=== PATIENT | female | born 1990 | race Caucasian/White ===

== ENCOUNTER 2019-02-20 21:11 | Emergency (ER) | payer SELFPAY ==
[~2019-02-20] VITALS: Ht 160 cm; Wt 59.0 kg
[2019-02-20 21:13] VITALS: BP 121/81
--- NOTE | 2019-02-20 21:13 | NUR ---
PT AMBULATED SELF TO BED #8
--- NOTE | 2019-02-20 21:25 | NUR ---
28 Y/O FEMALE PRESENTS TO ED, C/O OF RIGHT LOWER TOOTHACHE. PT STATES PAIN STARTED YESTERDAY, TOOK MOTRIN BUT WAS INEFFECTIVE. PT UNABLE TO TOLERATE PAIN. PT STATES BEING ADMITTED LAST JULY FOR LEFT LOWER TOOTHACHE. PT STATES RECEIVING ABX AND PAIN BEING RELIEVED. MILD SWELLING ON R LOWER TOOTH. PT STATES BEING ABLE TO TOLERATE FOOD AND LIQUID BUT HAS PAIN ON JAW MOVEMENT. PT HAS NO MEDICAL HX. PT VSS. DR GIANG AWARE. WILL CONTINUE TO MONITOR.
[2019-02-20 22:45] VITALS: BP 115/75
--- NOTE | 2019-02-20 22:45 | NUR ---
PT DISCHARGE WITH PAPERWORK. RX NAPROSYN, NORCO, AND AMOXICILLIN. EDUCATED PT REGARDING MEDICATIONS AND SIDE EFFECTS. EDUCATED PT REGARDING DISCHARGE DIAGNOSIS. PT VERBALIZED UNDERSTANDING OF TEACHING. TOLD PT TO FOLLOW UP WITH PCP AND DETIST. TOLD PT WHEN TO RETURN TO ED. PT VSS. ALL QUESTIONS ANSWERED.
== END 2019-02-20 22:45 | disposition home or self-care (01) ==
LOC: MED 21:11
DX: K08.89 Other specified disorders of teeth and supporting structures (principal)
CPT/HCPCS: 99283

== ENCOUNTER 2021-08-16 13:13 | Emergency (ER) | payer SELFPAY ==
[~2021-08-16] VITALS: Ht 162.6 cm; Wt 60.8 kg
[2021-08-16 13:27] VITALS: BP 107/81
--- NOTE | 2021-08-16 13:30 | NUR ---
PT TO WAIT IN LOBBY.
--- NOTE | 2021-08-16 13:41 | NUR ---
30 Y/O FEMALE C/O VAGINAL CRAMPING 01/23 X3DAYS. PT LMP 06/30/21. [id number]. DENIES FEVER/CHILLS. DENIES N/V. PMH: ASTHMA, ANXIETY NKA
[2021-08-16 14:38] LABS: APPEARANCE,URINE CLEAR (CLEAR); BILIRUBIN,URINE NEGATIVE (NEGATIVE); BLOOD, URINE TRACE-I (NEGATIVE); COLOR,URINE ORANGE (YELLOW); LEUKOCYTE ESTERASE ,URINE NEGATIVE (NEGATIVE); NITRITE, URINE POSITIVE (NEGATIVE); PH,URINE 7.5 (5.0-9.0); UGLUCOSE NEGATIVE (NEGATIVE)
[2021-08-16 17:08] VITALS: BP 112/78
--- NOTE | 2021-08-16 17:08 | NUR ---
PT LEFT WITHOUT DISCHARGE PAPERWORK. MADE AWARE.
[2021-08-16] MEDS ORDERED: NAPR-54 PO (17:14)
[2021-08-16 21:27] LABS: WBC,URINE 0-5 /HPF (0-5)
[2021-08-16 21:28] LABS: CALCIUM OXALATE CRYSTALS,UR None Seen /HPF (None Seen); OTHER CRYSTALS,URINE None Seen /HPF (None Seen); TRICHOMONAS,URINE None Seen /HPF (None Seen); TRIPLE PHOSPHATE CRYSTAL,UR None Seen /HPF (None Seen); URIC ACID CRYSTALS,URINE None Seen /HPF (None Seen); YEAST,URINE None Seen /HPF (None Seen)
== END 2021-08-16 17:08 | disposition home or self-care (01) ==
LOC: MED 13:13
DX: R10.2 Pelvic and perineal pain (principal); J45.909 Unspecified asthma, uncomplicated; F41.9 Anxiety disorder, unspecified; F17.210 Nicotine dependence, cigarettes, uncomplicated; Z79.1 Long term (current) use of non-steroidal anti-inflammatories (NSAID)
CPT/HCPCS: 36415; 76856; 81001; 81025; 84702; 99284

== ENCOUNTER 2022-04-19 01:28 | Emergency (ER) | payer OTHER ==
[~2022-04-19] VITALS: Ht 162.6 cm; Wt 64.2 kg
[~2022-04-19 01:28] MED LIST: NAPR-54 PO
[2022-04-19 01:36] VITALS: BP 151/88
--- NOTE | 2022-04-19 01:39 | NUR ---
PT TO LOBBY
--- NOTE | 2022-04-19 02:58 | NUR ---
URINE COLLECTED AND HANDED TO LAB
[2022-04-19 03:09] LABS: BASOPHILS # (AUTO) 0.2 K/uL (0.00-0.22); BASOPHILS % (AUTO) 0.9 % (0.0-2.0); EOSINOPHILS # (AUTO) 0.5 K/uL (0-0.4); EOSINOPHILS % (AUTO) 3.2 % (0.0-4.0); HEMATOCRIT 39.8 % (36-48); HEMOGLOBIN 13.4 g/dL (12.0-16.0); LYMPHOCYTES # (AUTO) 4.6 K/uL (2.5-16.5); LYMPHOCYTES % (AUTO) 28.7 % (20.5-51.1); MEAN CORPUSCULAR HEMOGLOBIN 30 pg (27-31); MEAN CORPUSCULAR HGB CONC 34 g/dL (33-37); MEAN CORPUSCULAR VOLUME 88.8 fL (80-94); MONOCYTES % (AUTO) 6.4 % (1.7-9.3); NEUTROPHILS # (AUTO) 9.7 K/uL (1.8-7.7); NEUTROPHILS % (AUTO) 60.8 % (42.2-75.2); PLATELET COUNT (AUTO) 271 K/uL (140-450); RED BLOOD CELL COUNT(AUTO) 4.48 MIL/uL (4.20-5.40); RED CELL DISTRIBUTION WIDTH 12.8 % (11.6-13.7)
[2022-04-19 03:27] LABS: ALBUMIN 3.6 g/dL (3.4-5.0); ANION GAP 12.6 (8-16); CARBON DIOXIDE 26.3 mmol/L (21-32); CREATININE 0.5 mg/dL (0.6-1.3); POTASSIUM 3.9 mmol/L (3.5-5.1); TOTAL BILIRUBIN 0.1 mg/dL (0.0-1.0)
[2022-04-19 04:05] VITALS: BP 151/88
--- NOTE | 2022-04-19 04:05 | NUR ---
Patient discharged with v/s stable. Written and verbal after care instructions given and explained. Patient verbalized understanding. Ambulatory with steady gait. All questions addressed prior to discharge. Advised to follow up with PMD.
== END 2022-04-19 04:05 | disposition home or self-care (01) ==
LOC: MED 01:28
DX: O26.891 Other specified pregnancy related conditions, first trimester (principal); R10.30 Lower abdominal pain, unspecified; O99.341 Other mental disorders complicating pregnancy, first trimester; F41.9 Anxiety disorder, unspecified; O99.511 Diseases of the respiratory system complicating pregnancy, first trimester; J45.909 Unspecified asthma, uncomplicated; Z3A.01 Less than 8 weeks gestation of pregnancy; Z79.1 Long term (current) use of non-steroidal anti-inflammatories (NSAID); V89.2XXA Person injured in unspecified motor-vehicle accident, traffic, initial encounter; Y93.89 Activity, other specified; Y92.410 Unspecified street and highway as the place of occurrence of the external cause; Y99.8 Other external cause status
CPT/HCPCS: 36415; 76801; 80053; 81002; 81025; 84702; 85025; 86900; 86901; 99284; Q0092

== ENCOUNTER 2024-01-10 15:09 | Emergency (ER) | payer OTHER ==
[~2024-01-10] VITALS: Ht 160 cm; Wt 54.4 kg
[~2024-01-10 15:09] MED LIST changes: +NAPR-337 PO; -NAPR-54 PO
[2024-01-10 15:22] VITALS: BP 122/82; PULSE 109; RESP 18; TEMP 97.3; O2SAT 97
== END 2024-01-10 16:27 | disposition left against medical advice (07) ==
LOC: MED 15:09
DX: R07.9 Chest pain, unspecified (principal); Z53.21 Procedure and treatment not carried out due to patient leaving prior to being seen by health care provider; V49.88XA Car occupant (driver) (passenger) injured in other specified transport accidents, initial encounter; Y93.89 Activity, other specified; Y92.89 Other specified places as the place of occurrence of the external cause; Y99.8 Other external cause status